=== PATIENT | male | born 1975 | race American Indian/Alaskan Native ===

== ENCOUNTER 2016-06-12 15:36 | Emergency (ER) | payer SELFPAY ==
[2016-06-12 16:56] VITALS: BP 136/94
--- NOTE | 2016-06-12 17:56 | Emergency Department Report ---
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 Patient states he was unable to irrigate impactions loose using hot water and wax softener. Patient denies any fever, dizziness, neck pain, blurred vision. MD complaint: other (ear discomfort) -: Gradual Location: R ear Severity: mild Severity scale (0 -10): 1 Quality: dull Consistency: constant Improves with: none Worsens with: none Associated Symptoms: denies: fever, cough, toothache, pain with swallowing, sore throat, tinnitus, discharge from ear - Related Data Previous Rx's Medication Instructions Recorded Last Taken Type Neomy/Polymyx B/Hc Otic Susp 4 drops OTIC TID #1 bottle 06/12/16 Unknown Rx [Cortisporin (Otic) Susp] Allergies Allergy/AdvReac Type Severity Reaction Status Date / Time No Known Allergies Allergy Unverified 06/12/16 16:52 ED Dental HPI - General Chief complaint: Earache Stated complaint: RT EAR CLOGGED Time Seen by Provider: 06/12/16 17:55 Source: patient Mode of arrival: Ambulatory Limitations: No Limitations - History of Present Illness Initial comments: Ear clogged Quality: dull - Related Data Previous Rx's Medication Instructions Recorded Last Taken Type Neomy/Polymyx B/Hc Otic Susp 4 drops OTIC TID #1 bottle 06/12/16 Unknown Rx [Cortisporin (Otic) Susp] Allergies Allergy/AdvReac Type Severity Reaction Status Date / Time No Known Allergies Allergy Unverified 06/12/16 16:52 ED Review of Systems ROS: Stated complaint: RT EAR CLOGGED Other details as noted in HPI Constitutional: denies: chills, fever Eyes: denies: eye pain, eye discharge, vision change ENT: other (right ear clogged). denies: ear pain, throat pain Respiratory: denies: cough, shortness of breath, wheezing Endocrine: no symptoms reported Gastrointestinal: denies: abdominal pain, nausea, diarrhea Genitourinary: denies: urgency, dysuria Musculoskeletal: denies: back pain, joint swelling, arthralgia Skin: denies: rash, lesions Neurological: denies: headache, weakness, paresthesias, abnormal gait, vertigo ED Past Medical Hx - Medications Home Medications: Home Medications Medication Instructions Recorded Confirmed Last Taken Type Neomy/Polymyx B/Hc Otic Susp 4 drops OTIC TID #1 bottle 06/12/16 Unknown Rx [Cortisporin (Otic) Susp] ED Physical Exam - General Limitations: No Limitations General appearance: alert, in no apparent distress - Head Head exam: Present: atraumatic, normocephalic - Eye Eye exam: Present: normal appearance - Expanded ENT Exam Expanded TM/Canal exam: Cerumen Impaction: Right TM, Left TM Mouth exam: Present: normal external inspection. Absent: drooling, trismus, muffled voice Throat exam: Positive: normal inspection. Negative: tonsillar erythema, tonsillar exudate - Neck Neck exam: Present: normal inspection, full ROM. Absent: tenderness, meningismus, lymphadenopathy - Respiratory Respiratory exam: Present: normal lung sounds bilaterally. Absent: respiratory distress, wheezes, rales, rhonchi - Cardiovascular Cardiovascular Exam: Present: regular rate - Neurological Exam Neurological exam: Present: alert, oriented X3, CN II-XII intact, normal gait - Skin Skin exam: Present: warm, dry, intact, normal color. Absent: rash ED Course Vital Signs 06/12/16 16:52 Temperature 98.4 F Pulse Rate 64 Respiratory 18 Rate Blood Pressure 136/94 O2 Sat by Pulse 100 Oximetry Critical care attestation.: If time is entered above; I have spent that time in minutes in the direct care of this critically ill patient, excluding procedure time. ED Disposition Clinical Impression: Bilateral impacted cerumen Disposition: DISCHARGED TO HOME OR SELFCARE Is pt being admited?: No Condition: Stable Instructions: Cerumen Impaction (ED) Prescriptions: Neomy/Polymyx B/Hc Otic Susp [Cortisporin (Otic) Susp] 4 drops OTIC TID #1 bottle Referrals: MARIA GUADALUPE HOWELL MD [Staff Physician] - 3-5 Days RICHMOND MAY MD [Staff Physician] - 3-5 Days [facility], [Primary Care Provider] - 3-5 Days
== END 2016-06-12 18:27 | disposition home or self-care (01) ==
LOC: ED 15:36
DX: H61.23 Impacted cerumen, bilateral (principal)
CPT/HCPCS: 99282